=== PATIENT | female | born 1990 ===

== ENCOUNTER 2021-07-08 11:18 | Inpatient (IN) | payer OTHER ==
[~2021-07-08] VITALS: Ht 157.5 cm; Wt 56.2 kg
[2021-07-10] MEDS ORDERED: [UNRECOGNIZED DRUG - OTHER] PO (08:56)
[2021-07-10] MEDS ORDERED: PRENATAL + DHA1 EAC1 PO (14:39)
== END 2021-07-12 14:08 | disposition home or self-care (01) | DRG 807 ==
LOC: LDR 07-10 06:24 → SURG-SUITE 07-10 06:24 → SURH 07-10 12:00 → SURG-SUITE 07-10 14:01
PROVIDERS: ADMIT Obstetrics & Gynecology Maternal & Fetal Medicine; ATTEND Obstetrics & Gynecology Maternal & Fetal Medicine
PROC: 10E0XZZ Delivery of Products of Conception, External Approach (ICD-10-PCS; principal; 2021-07-10)
PROC: 0HQ9XZZ Repair Perineum Skin, External Approach (ICD-10-PCS; 2021-07-10)
PROC: 4A1HXFZ Monitoring of Products of Conception, Cardiac Rhythm, External Approach (ICD-10-PCS; 2021-07-10)
DX: O70.0 First degree perineal laceration during delivery (principal); Z37.0 Single live birth; O99.824 Streptococcus B carrier state complicating childbirth; Z3A.39 39 weeks gestation of pregnancy

== ENCOUNTER 2024-09-12 13:45 | Inpatient (IN) | payer OTHER ==
[~2024-09-12] VITALS: Ht 157.5 cm; Wt 64.4 kg
[~2024-09-12 13:45] MED LIST: PRENATAL + DHA1 EAC1 PO; [UNRECOGNIZED DRUG - OTHER] PO
[2024-09-21] VITALS (12 sets, daily range): BP systolic 114–138; BP diastolic 58–96
[2024-09-21] MEDS ORDERED: RINGERS SOLUTION,LACTATED 1,000 ML IV SCH (05:30)
[2024-09-21] MEDS ORDERED: OXYTOCIN 500 ML IV ONE (05:30)
[2024-09-21 06:39] LABS: HEMOGLOBIN 12.1 g/dL (12.0-15.00); MEAN CELL VOLUME 88.2 fL (80.00-100.00); MEAN CORPUSCULAR HEMOGLOBIN 31.4 pg (27.00-32.0); MEAN CORPUSCULAR HGB CONC 35.6 g/dl (32.0-36.0); PLATELET COUNT 173 K/uL (150-450); RED BLOOD COUNT 3.85 M/uL (4.00-6.00); RED CELL DISTRIBUTION WIDTH 14.2 % (11.5-14.5)
[2024-09-21 06:52] LABS: INR < 0.93; PARTIAL THROMBOPLASTIN TIME 27.8 SECONDS (22.0-34.0); PROTHROMBIN TIME 10.1 SECONDS (9.0-11.5)
[2024-09-21] MEDS ORDERED: OXYTOCIN 20 UNITS/500ML RL PIGGYBAG IV ONE (06:59)
[2024-09-21 07:15] LABS: ALBUMIN 2.8 gm/dL (3.4-5.0); BILIRUBIN TOTAL 0.62 mg/dL (0.3-1.2); CALCIUM 9.7 mg/dL (8.5-10.1); CREATININE SERUM 0.45 mg/dL (0.55-1.02); GFR 158.56; GLOBULINA 3.6 G/DL (2.4-3.5); POTASSIUM 4.26 mEq/L (3.5-5.1); TOTAL PROTEIN 6.4 gm/dL (6.4-8.2)
[2024-09-21] MEDS ORDERED: ERYTHROMYCIN BASE OPHT 1GM EACH TUBE OP ONE ×2 (14:49→17:45)
[2024-09-21] MEDS ORDERED: LIDOCAINE HCL 1% 10ML VIAL ONE (14:49)
[2024-09-21] MEDS ORDERED: CHLORHEXIDINE GLUCONATE 120 ML BOTTLE TOP ONE (14:49)
[2024-09-21] MEDS ORDERED: OXYTOCIN 20 UNITS/1000ML RL PIGGYBAG IV ONE (14:49)
[2024-09-21] MEDS ORDERED: OXYTOCIN 1,000 ML IV SCH (17:15)
[2024-09-21] MEDS ORDERED: IBUprofen 400 MG TABLET PO PRN (17:15)
[2024-09-21] MEDS ORDERED: CHLORHEXIDINE GLUCONATE 120 ML BOTTLE TP SCH (17:15)
[2024-09-22 03:32] VITALS: BP 100/63
[2024-09-22 06:43] LABS: HEMATOCRIT 31.9 % (36.0-45.00); HEMOGLOBIN 11.4 g/dL (12.0-15.00); MEAN CELL VOLUME 87.9 fL (80.00-100.00); MEAN CORPUSCULAR HEMOGLOBIN 31.4 pg (27.00-32.0); MEAN CORPUSCULAR HGB CONC 35.8 g/dl (32.0-36.0); PLATELET COUNT 159 K/uL (150-450); RED BLOOD COUNT 3.63 M/uL (4.00-6.00); RED CELL DISTRIBUTION WIDTH 14.5 % (11.5-14.5)
[2024-09-22 08:12] VITALS: BP 100/66
[2024-09-22 15:55] VITALS: BP 104/70
[2024-09-23] VITALS: BP 108/69
[2024-09-23 08:00] VITALS: BP 114/77
== END 2024-09-23 16:52 | disposition home or self-care (01) | DRG 807 ==
LOC: LDR 09-21 05:20 → OB/GYN 09-21 05:20
PROVIDERS: Obstetrics & Gynecology; ADMIT Obstetrics & Gynecology Maternal & Fetal Medicine; ATTEND Obstetrics & Gynecology Maternal & Fetal Medicine
PROC: 10E0XZZ Delivery of Products of Conception, External Approach (ICD-10-PCS; principal; 2024-09-21)
PROC: 0HQ9XZZ Repair Perineum Skin, External Approach (ICD-10-PCS; 2024-09-21)
PROC: 4A1HXCZ Monitoring of Products of Conception, Cardiac Rate, External Approach (ICD-10-PCS; 2024-09-21)
DX: O70.0 First degree perineal laceration during delivery (principal); Z37.0 Single live birth; Z3A.39 39 weeks gestation of pregnancy